=== PATIENT | female | born 1990 | race Caucasian/White ===

== ENCOUNTER 2022-04-10 23:05 | Emergency (ER) | payer OTHER ==
[~2022-04-10] VITALS: Ht 160 cm; Wt 68.0 kg
[~2022-04-10 23:05] MED LIST: DOXY100 PO; METR500 PO
[2022-04-11] MEDS ORDERED: PAXLOVID 2X1501 EACH PO (01:40)
[2022-04-11] MEDS ORDERED: Guaifenesin Wit10 ML PO (01:40)
== END 2022-04-11 02:33 | disposition home or self-care (01) ==
LOC: ER 23:05
DX: U07.1 COVID-19 (principal); Z79.899 Other long term (current) drug therapy
CPT/HCPCS: 99284

== ENCOUNTER → 2022-05-16 | Outpatient (CLI) | payer OTHER ==
[~2022-05-16] MED LIST changes: +Guaifenesin Wit10 ML PO; +PAXLOVID 2X1501 EACH PO
[2022-05-16 15:52] LABS: BASOPHILS ABSOLUTE AUTO 0.02 K/mm3 (0.00-0.23); BASOPHILS PERCENT AUTO 0 % (0-2); EOSINOPHILS PERCENT AUTO 0 % (0-6); Hematocrit 41.6 % (33.0-51.0); Hemoglobin 14.6 g/dL (11.5-16.0); IMMATURE GRAN ABSOLUTE AUTO 0.01 K/mm3 (0.00-0.10); IMMATURE GRAN PERCENT AUTO 0 % (0-1); LYMPHOCYTES ABSOLUTE AUTO 2.14 K/mm3 (0.84-5.20); LYMPHOCYTES PERCENT AUTO 27 % (21-46); MONOCYTES ABSOLUTE AUTO 0.65 K/mm3 (0.16-1.47); MONOCYTES PERCENT AUTO 8 % (4-13); Mean Corpuscular HGB 31.3 pg (26.0-34.0); Mean Corpuscular HGB Conc 35.1 g/dL (31.5-36.5); Mean Corpuscular Volume 89 fL (80-100); Mean Platelet Volume 9.6 fL (9.1-12.4); NEUTROPHILS ABSOLUTE AUTO 5.02 K/mm3 (1.96-9.15); NEUTROPHILS PERCENT AUTO 64 % (41-73); Platelet Count 238 K/mm3 (150-400); RDW Coefficient Variation 12.5 % (11.7-14.2); RDW Standard Deviation 40.5 fL (35.1-46.3); Red Blood Cell Count 4.67 M/mm3 (3.80-5.20); White Blood Cell Count 7.84 K/mm3 (4.00-11.30)
[2022-05-16 15:59] LABS: Bilirubin, Total 1.1 mg/dL (0.1-1.0); Calcium, Blood 8.9 mg/dL (8.5-10.1); Creatinine, Blood 0.75 mg/dL (0.40-1.00); Globulin, Blood 3.9 g/dL (2.2-4.0); Potassium, Blood 3.7 mmol/L (3.5-5.5); Total Protein, Blood 7.9 g/dL (6.4-8.2)
== END | disposition home or self-care (01) ==
LOC: LAB SHORT 15:44 → LAB 15:44
PROVIDERS: Physician Assistant
DX: R07.9 Chest pain, unspecified (principal)
CPT/HCPCS: 80053; 84484; 85025

== ENCOUNTER → 2022-06-27 | Outpatient (CLI) | payer OTHER ==
[2022-07-02 16:10] LABS: HPV 16 Negative (Negative); HPV 18 Negative (Negative); HPV OTHER HR TYPES Positive (Negative)
== END | disposition home or self-care (01) ==
LOC: LAB SHORT 19:04 → LAB 19:04
PROVIDERS: Physician Assistant
DX: Z01.419 Encounter for gynecological examination (general) (routine) without abnormal findings (principal)
CPT/HCPCS: 87624; 87625; 88175

== ENCOUNTER → 2022-07-17 | Outpatient (CLI) | payer OTHER | END | disposition home or self-care (01) | LOC: PLD 14:57 → LAB SHORT 14:57 | DX: N87.0 Mild cervical dysplasia (principal) | CPT/HCPCS: 88305 ==

== ENCOUNTER 2022-10-13 08:18 | Day surgery (SDC) | payer OTHER ==
[~2022-10-13] VITALS: Ht 154.9 cm; Wt 74.4 kg
--- NOTE | 2022-10-13 16:00 | NUR ---
ARRIVAL TO UNIT VIA GOURNEY. 4 PERSON ASSIST TO SLIDE OVER TO HOSPITAL BED. ALERT, ORIENTED, PLEASANT. ABD SOFT w/ LAP SITES x 4 w/ WOUND GLUE. NO DRNG. HRR. LUNGS CLEAR BUT FAINT EXP WHEEZE TO L SIDE. CLEARS w/ GENTLE COUGH. EDUCATED ON SPLINTING. DENIES N/V. WATER & JELLO GIVEN.
--- NOTE | 2022-10-13 16:35 | NUR ---
N/V AFTER FEW SMALL SIPS OF WATER & HALF A BITE OF JELLO, N/V HIT. SMALL AMOUNT OF EMESIS. ZOFRAN & PAIN MEDS GIVEN. 2L NC APPLIED AFTER IV DILAUDID GIVEN.
--- NOTE | 2022-10-13 18:20 | NUR ---
REPORTS FEELING MUCH BETTER. TAKING IN SALTINES & WATER. WANTS TO GO HOME. TOLD HER IF NO N/V IN NEXT 45 MINS SHE COULD DISCHARGE.
--- NOTE | 2022-10-13 19:20 | NUR ---
ATTEMPT TO DC PT HAD KEPT CRACKERS & WATER DOWN. UP TO VOID & FEELING GOOD. DISCHARGE INSTRUCTIONS GIVEN & PT GETTING DRESSED.
--- NOTE | 2022-10-13 19:35 | NUR ---
WHEN SC BROUGHT TO ROOM, PT VOMITED 500 MLS. DSICHARGE DELAYED & WILL STAY OVERNIGHT FOR FLUIDS.
--- NOTE | 2022-10-14 04:54 | NUR ---
SHIFT SUMMARY PT A&OX4 PLEASANT AND COOPERATIVE WITH CARE. PT WAS ABOUT TO DISCHARGE AT BEGINNING OF SHIFT, BUT STARTED HAVING NAUSEA/VOMITING. MEDICATED FOR NAUSEA ONCE. PT KEPT OVERNIGHT. TOLERATING PO FLUIDS NOW WITH NO N/V. VOIDING WELL. CALLS APPROPRIATELY, CALL LIGHT WITHIN REACH.
--- NOTE | 2022-10-14 09:30 | NUR ---
DISCHARGE PT FEELING MUCH BETTER. EATING, DRINKING, & VOIDING WELL. PAIN WELL MANAGED. DR NAVARRO INTO SEE PT THIS AM. ESCORTED OUT VIA WC.
== END 2022-10-14 09:30 | disposition home or self-care (01) ==
LOC: ORSCMMR 08:18 → ORD 09:45 → SURS 15:50 → ORSCMMR 10-14 09:30
PROVIDERS: Obstetrics & Gynecology
PROC: 0UT94ZZ Resection of Uterus, Percutaneous Endoscopic Approach (ICD-10-PCS; principal; 2022-10-13 09:45)
DX: N92.0 Excessive and frequent menstruation with regular cycle (principal); N94.5 Secondary dysmenorrhea; Z87.42 Personal history of other diseases of the female genital tract; N72 Inflammatory disease of cervix uteri; K21.9 Gastro-esophageal reflux disease without esophagitis
CPT/HCPCS: 58570; S2900; 88307; A9270; J0690; J1100; J1170; J1885; J2250; J2405; J2704; J2765; J2795; J3010; J7120

== ENCOUNTER → 2022-11-05 | Outpatient (CLI) | payer OTHER ==
[2022-11-06 09:56] LABS: Candida species (DNA Probe) Positive (NEGATIVE); G. vaginalis (DNA Probe) Positive (NEGATIVE); T. vaginalis (DNA Probe) Negative (NEGATIVE)
== END | disposition home or self-care (01) ==
LOC: LAB 16:21 → LAB SHORT 16:21
PROVIDERS: Obstetrics & Gynecology
DX: N76.0 Acute vaginitis (principal)
CPT/HCPCS: 87480; 87510; 87660

== ENCOUNTER 2022-12-22 09:13 | Day surgery (SDC) | payer OTHER ==
[~2022-12-22] VITALS: Ht 154.9 cm; Wt 72.7 kg
== END 2022-12-22 11:30 | disposition home or self-care (01) ==
LOC: ORSCSDS 09:13
PROVIDERS: Internal Medicine Gastroenterology
PROC: 0DB68ZX Excision of Stomach, Via Natural or Artificial Opening Endoscopic, Diagnostic (ICD-10-PCS; principal; 2022-12-22 10:30)
PROC: 0DB98ZX Excision of Duodenum, Via Natural or Artificial Opening Endoscopic, Diagnostic (ICD-10-PCS; principal; 2022-12-22 10:30)
PROC: 0DJD8ZZ Inspection of Lower Intestinal Tract, Via Natural or Artificial Opening Endoscopic (ICD-10-PCS; principal; 2022-12-22 10:30)
DX: R10.13 Epigastric pain (principal); R19.4 Change in bowel habit; R10.9 Unspecified abdominal pain; K21.00 Gastro-esophageal reflux disease with esophagitis, without bleeding; K62.5 Hemorrhage of anus and rectum; K44.9 Diaphragmatic hernia without obstruction or gangrene; K29.70 Gastritis, unspecified, without bleeding; K64.8 Other hemorrhoids; K76.0 Fatty (change of) liver, not elsewhere classified
CPT/HCPCS: 88305; 88342; J2250; J2704; J7120

== ENCOUNTER → 2023-03-03 | Outpatient (CLI) | payer OTHER | END | disposition home or self-care (01) | LOC: LAB SHORT 18:43 | DX: N39.0 Urinary tract infection, site not specified (principal) | CPT/HCPCS: 87077; 87086; 87186 ==